=== PATIENT | male | born 1985 | race Two or more races ===

== ENCOUNTER 2018-10-13 19:48 | Inpatient (IN) | payer OTHER ==
[2018-10-13 22:44] VITALS: BMI 26.6
--- NOTE | 2018-10-14 01:10 | HP ---
CIWA Score Nausea/Vomitin-Mild Nausea/No Vomiting Muscle Tremors: 4-Moderate,w/Arms Extend Anxiety: 3 Agitation: 4-Moderately Restless Paroxysmal Sweats: 1-Minimal Palms Moist Orientation: 2-Disoriented Date<2 days Tacttile Disturbances: 0-None Auditory Disturbances: 0-None Visual Disturbances: 0-None Headache: 0-None Present CIWA-Ar Total Score: 15 - Admission Criteria OASAS Guidelines: Admission for Medically Managed Detox: Requires at least one of the followin. CIWA greater than 12 2. Seizures within the past 24 hours 3. Delirium tremens within the past 24 hours 4. Hallucinations within the past 24 hours 5. Acute intervention needed for co occurring medical disorder 6. Acute intervention needed for co occurring psychiatric disorder 7. Severe withdrawal that cannot be handled at a lower level of care (continued vomiting, continued diarrhea, abnormal vital signs) requiring intravenous medication and/or fluids 8. Admission ROS S - HPI Chief Complaint: Alcohol withdrawal symptoms Allergies/Adverse Reactions: Allergies Allergy/AdvReac Type Severity Reaction Status Date / Time No Known Allergies Allergy Verified 10/13/18 23:46 History of Present Illness: 33 years old male with a long history of alcohol dependence is seeking admission to detox. Patient has been in previous detox and reports insignificant period of sobriety. He has medical history of depression and denies suicidal ideation at this time Exam Limitations: No Limitations - Ebola screening Have you traveled outside of the country in the last 21 days: No (N) Have you had contact with anyone from an Ebola affected area: No Have you been sick,other than usual withdrawal symptoms: No Do you have a fever: No - Review of Systems Constitutional: Chills, Loss of Appetite, Malaise, Changes in sleep EENT: reports: Sinus Pressure Respiratory: reports: No Symptoms reported Cardiac: reports: No Symptoms Reported GI: reports: Diarrhea, Poor Appetite, Poor Fluid Intake, Vomiting, Abdominal cramping : reports: No Symptoms Reported Musculoskeletal: reports: No Symptoms Reported, Muscle Weakness Integumentary: reports: Flushing Neuro: reports: Tremors Endocrine: reports: No Symptoms Reported Hematology: reports: No Symptoms Reported Psychiatric: reports: Mood/Affect Appropiate, Orientated x3, Depressed Other Systems: Reviewed and Negative Patient History - Patient Medical History Hx Anemia: No Hx Asthma: No Hx Chronic Obstructive Pulmonary Disease (COPD): No Hx Cardiac Disorders: No Hx Hypertension: No Hx Hypercholesterolemia: No HX Cerebrovascular Accident: No Hx Seizures: No Hx Dementia: No Hx Diabetes: No Hx Gastrointestinal Disorders: No Hx Genitourinary Disorders: No Hx Sexually Transmitted Disorders: No Hx Renal Disease (ESRD): No Hx Thyroid Disease: No Hx Human Immunodeficiency Virus (HIV): No Hx Hepatitis C: No Hx Depression: Yes (Not on medication) Hx Suicide Attempt: No (Denies suicidal ideation at this time) Hx Bipolar Disorder: No Hx Schizophrenia: No - Patient Surgical History Past Surgical History: No Hx Neurologic Surgery: No Hx Cataract Extraction: No Hx Cardiac Surgery: No Hx Lung Surgery: No Hx Breast Surgery: No Hx Breast Biopsy: No Hx Abdominal Surgery: No Hx Appendectomy: No Hx Cholecystectomy: No Hx Genitourinary Surgery: No Hx Section: No Hx Orthopedic Surgery: No Anesthesia Reaction: No - PPD History Previous Implant?: Yes Documented Results: Negative w/o proof - Smoking Cessation Smoking history: Current every day smoker Have you smoked in the past 12 months: Yes Aproximately how many cigarettes per day: 10 Hx Chewing Tobacco Use: No Initiated information on smoking cessation: Yes 'Breaking Loose' booklet given: 10/14/18 - Substances Abused Alcohol Route: Oral Frequency: Daily Amount used: LIQUOR- 3 PINTS, BEER- 3 SIX PACK Age of first use: 14 Date of Last Use: 10/13/18 Cocaine Route: Inhalation Frequency: Daily Amount used: 15 BAGS Age of first use: 15 Date of Last Use: 10/13/18 Family Disease History - Family Disease History Family History: Denies Admission Physical Exam [facility] - Vital Signs Vital Signs: Vital Signs - 24 hr 10/13/18 22:37 Temperature 98 F Pulse Rate 120 H Respiratory 18 Rate Blood Pressure 143/100 - Physical General Appearance: Yes: Moderate Distress, Tremorous, Sweating, Anxious HEENTM: Yes: Normal ENT Inspection, Normocephalic, Normal Voice, [place] Respiratory: Yes: Lungs Clear, Normal Breath Sounds, No Respiratory Distress Neck: Yes: Supple Breast: Yes: Breast Exam Deferred Cardiology: Yes: Regular Rhythm, Regular Rate Abdominal: Yes: Normal Bowel Sounds, Soft Genitourinary: Yes: Within Normal Limits Back: Yes: Normal Inspection Musculoskeletal: Yes: Back pain Extremities: Yes: Tremors Neurological: Yes: Alert, Normal Mood/Affect Integumentary: Yes: Warm Lymphatic: Yes: Within Normal Limits - Diagnostic (1) Alcohol dependence with uncomplicated withdrawal Current Visit: Yes Status: Chronic (2) Depression Current Visit: Yes Status: Chronic Qualifiers: Depression Type: unspecified Qualified Code(s): F32.9 - Major depressive disorder, single episode, unspecified Cleared for Admission [facility] - Detox or Rehab [facility] Level of Care: Medically Managed Detox Regimen/Protocol: Librium S Breath Alcohol Content Breath Alcohol Content: 0.078 Urine Drug Screen - Results Drug Screen Negative: No Urine Drug Screen Results: LOU-Cocaine Inpatient Rehab Admission - Rehab Decision to Admit Inpatient rehab admission?: No
[2018-10-14] MEDS ORDERED: MAGNESIUM CITRATE 300 ML BOTTLE PO PRN (01:21)
[2018-10-14] MEDS ORDERED: MELATONIN 5 MG TABLETS PO PRN (01:21)
[2018-10-14] MEDS ORDERED: ACETAMINOPHEN 325 MG TABLET (FP) PO PRN ×2 (01:21)
[2018-10-14] MEDS ORDERED: chlordiazePOXIDE HCL 25 MG CAPSULE PO PRN ×2 (01:21→06:57)
[2018-10-14] MEDS ORDERED: MAG HYDROX/AL HYDROX/SIMETH 30 ML UNIT-DOSE CUP PO PRN (01:21)
[2018-10-14] MEDS ORDERED: BISMUTH SUBSALICYLATE 524 MG/30 ML UD PO PRN (01:21)
[2018-10-14] MEDS ORDERED: MENTHOL/PHENOL 1 EACH UD MM PRN (01:21)
[2018-10-14] MEDS ORDERED: IBUPROFEN 400 MG TABLET (FP) PO PRN (01:21)
[2018-10-14] MEDS ORDERED: hydrOXYzine PAMOATE 25 MG CAPSULE (FP) PO PRN (01:21)
[2018-10-14] MEDS ORDERED: METHOCARBAMOL 500 MG TABLET PO PRN (01:21)
[2018-10-14] MEDS ORDERED: MAGNESIUM HYDROX 2400MG/30ML ORAL SUSPENSION 30 ML CUP PO PRN (01:21)
[2018-10-14] MEDS: chlordiazePOXIDE HCL 25 MG CAPSULE PO SCH ×4 (06:00→22:23)
[2018-10-14] MEDS: PRENATAL VITAMINS W/ FOLIC ACID TABLET (FP) PO SCH (10:18)
--- NOTE | 2018-10-14 15:40 | PN ---
[facility] CIWA - CIWA Score Nausea/Vomitin-No Nausea/No Vomiting Muscle Tremors: 4-Moderate,w/Arms Extend Anxiety: 3 Agitation: 2 Paroxysmal Sweats: 1-Minimal Palms Moist Orientation: 1-Uncertain about Date Tacttile Disturbances: 0-None Auditory Disturbances: 0-None Visual Disturbances: 0-None Headache: 1-Very Mild CIWA-Ar Total Score: 12 [facility] Progress Note (SOAP) Subjective: tremor sweating restlessness Objective: 10/14/18 15:39 Vital Signs Temperature 97.5 F L 10/14/18 13:40 Pulse Rate 114 H 10/14/18 13:40 Respiratory Rate 18 10/14/18 13:40 Blood Pressure 136/84 10/14/18 13:40 O2 Sat by Pulse Oximetry (%) lab pending Assessment: 10/14/18 15:39 withdrawal sx Plan: continue detox
[2018-10-14] MEDS: THIAMINE HCL 100 MG TABLET (FP) PO SCH (22:23)
[2018-10-14] MEDS ORDERED: chlordiazePOXIDE HCL 25 MG CAPSULE PO SCH (23:00)
[2018-10-15] MEDS: chlordiazePOXIDE HCL 25 MG CAPSULE PO SCH ×4 (05:56→22:12)
[2018-10-15] MEDS: PRENATAL VITAMINS W/ FOLIC ACID TABLET (FP) PO SCH (11:01)
[2018-10-15 11:13] LABS: HEMATOCRIT 40.4 % (35.4-49); HEMOGLOBIN 13.9 GM/dL (11.7-16.9); MCH 32.1 pg (25.7-33.7); MCHC 34.4 g/dl (32.0-35.9); MEAN CELL VOLUME 93.3 fl (80-96); MEAN PLT VOLUME 8.3 fl (7.5-11.1); PLATELET COUNT 288 K/MM3 (134-434); RBC 4.33 M/mm3 (4.00-5.60); RDW 13.1 % (11.9-15.9); WHITE BLOOD COUNT 10.7 K/mm3 (4.0-10.0)
[2018-10-15 11:14] LABS: ALBUMIN 3.5 g/dl (3.4-5.0); ALK PHOS 107 U/L (45-117); ANION GAP 8 MMOL/L (8-16); BILIRUBIN,TOTAL 0.3 mg/dL (0.2-1); BLOOD UREA NITROGEN 16 mg/dL (7-18); CALCIUM 8.7 mg/dL (8.5-10.1); CHLORIDE 101 mmol/L (98-107); CO2 28 mmol/L (21-32); CREATININE 1.4 mg/dL (0.55-1.3); GLUCOSE,RANDOM 120 mg/dL (74-106); POTASSIUM 4.1 mmol/L (3.5-5.1); SGOT/AST 11 U/L (15-37); SGPT/ALT 28 U/L (13-61); SODIUM 137 mmol/L (136-145); TOT PROT 7.4 g/dl (6.4-8.2)
--- NOTE | 2018-10-15 15:11 | PN ---
[facility] CIWA - CIWA Score Nausea/Vomitin-No Nausea/No Vomiting Muscle Tremors: 1-None Visible, but [place] Anxiety: 1-Mildly Anxious Agitation: 2 Paroxysmal Sweats: 1-Minimal Palms Moist Orientation: 1-Uncertain about Date Tacttile Disturbances: 0-None Auditory Disturbances: 0-None Visual Disturbances: 0-None Headache: 1-Very Mild CIWA-Ar Total Score: 7 S Progress Note (SOAP) Subjective: tremor sweating trouble sleep at night low energy Objective: 10/15/18 15:10 Vital Signs Temperature 96.8 F L 10/15/18 13:42 Pulse Rate 120 H 10/15/18 13:42 Respiratory Rate 18 10/15/18 13:42 Blood Pressure 124/80 10/15/18 13:42 O2 Sat by Pulse Oximetry (%) Laboratory Last Values WBC 10.7 K/mm3 (4.0-10.0) H 10/15/18 07:00 RBC 4.33 M/mm3 (4.00-5.60) 10/15/18 07:00 Hgb 13.9 GM/dL (11.7-16.9) 10/15/18 07:00 Hct 40.4 % (35.4-49) 10/15/18 07:00 MCV 93.3 fl (80-96) 10/15/18 07:00 MCH 32.1 pg (25.7-33.7) 10/15/18 07:00 MCHC 34.4 g/dl (32.0-35.9) 10/15/18 07:00 RDW 13.1 % (11.9-15.9) 10/15/18 07:00 Plt Count 288 K/MM3 (134-434) 10/15/18 07:00 MPV 8.3 fl (7.5-11.1) 10/15/18 07:00 Sodium 137 mmol/L (136-145) 10/15/18 07:00 Potassium 4.1 mmol/L (3.5-5.1) 10/15/18 07:00 Chloride 101 mmol/L (98-107) 10/15/18 07:00 Carbon Dioxide 28 mmol/L (21-32) 10/15/18 07:00 Anion Gap 8 MMOL/L (8-16) 10/15/18 07:00 BUN 16 mg/dL (7-18) 10/15/18 07:00 Creatinine 1.4 mg/dL (0.55-1.3) H 10/15/18 07:00 Creat Clearance w eGFR 57.67 (>60) 10/15/18 07:00 Random Glucose 120 mg/dL (74-106) H 10/15/18 07:00 Calcium 8.7 mg/dL (8.5-10.1) 10/15/18 07:00 Total Bilirubin 0.3 mg/dL (0.2-1) 10/15/18 07:00 AST 11 U/L (15-37) L 10/15/18 07:00 ALT 28 U/L (13-61) 10/15/18 07:00 Alkaline Phosphatase 107 U/L (45-117) 10/15/18 07:00 Total Protein 7.4 g/dl (6.4-8.2) 10/15/18 07:00 Albumin 3.5 g/dl (3.4-5.0) 10/15/18 07:00 RPR Titer Nonreactive (NONREACTIVE) 10/15/18 07:00 lab noted Assessment: 10/15/18 15:11 withdrawal sx Plan: continue detox
[2018-10-15] MEDS: THIAMINE HCL 100 MG TABLET (FP) PO SCH (22:12)
[2018-10-15] MEDS ORDERED: chlordiazePOXIDE HCL 25 MG CAPSULE PO SCH (23:00)
[2018-10-16] MEDS ORDERED: chlordiazePOXIDE HCL 10 MG CAPSULE PO PRN ×2 (05:00→23:00)
[2018-10-16] MEDS: chlordiazePOXIDE HCL 10 MG CAPSULE PO SCH ×4 (05:32→22:21)
[2018-10-16] MEDS: PRENATAL VITAMINS W/ FOLIC ACID TABLET (FP) PO SCH (10:54)
--- NOTE | 2018-10-16 18:05 | PN ---
BHS Progress Note (SOAP) Subjective: Sweating (Mild). Objective: PATIENT A & O X 3, OBSERVED AMBULATING ON UNIT. IN NO ACUTE DISTRESS. 10/16/18 18:02 Vital Signs Temperature 97.6 F 10/16/18 14:06 Pulse Rate 105 H 10/16/18 14:06 Respiratory Rate 20 10/16/18 14:06 Blood Pressure 134/89 10/16/18 14:06 O2 Sat by Pulse Oximetry (%) Laboratory Tests 10/15/18 10/15/18 10/15/18 07:00 07:00 07:00 WBC 10.7 H RBC 4.33 Hgb 13.9 Hct 40.4 MCV 93.3 MCH 32.1 MCHC 34.4 RDW 13.1 Plt Count 288 MPV 8.3 Sodium 137 Potassium 4.1 Chloride 101 Carbon Dioxide 28 Anion Gap 8 BUN 16 Creatinine 1.4 H Creat Clearance w eGFR 57.67 Random Glucose 120 H Calcium 8.7 Total Bilirubin 0.3 AST 11 L ALT 28 Alkaline Phosphatase 107 Total Protein 7.4 Albumin 3.5 RPR Titer Nonreactive LABS NOTED. Assessment: 10/16/18 18:03 WITHDRAWAL SYMPTOMS. Plan: CONTINUE DETOX. INCREASE DAILY PO FLUID INTAKE. PATIENT REPORTS THAT HE IS TOLERATING CURRENT WITHDRAWAL / DETOX SYMPTOMS WELL. AT PATIENT'S REQUEST, CURRENT DETOX MEDICATION REGIMEN (LIBRIUM) MODIFIED SO THAT PATIENT MAY BE DISCHARGED TOMORROW, 10/17/2018 ADMISSION BED IS CURRENTLY AVAILABLE AT [facility] ([place], [place]).
[2018-10-16] MEDS: THIAMINE HCL 100 MG TABLET (FP) PO SCH (22:21)
[2018-10-16] MEDS ORDERED: chlordiazePOXIDE HCL 10 MG CAPSULE PO SCH (23:00)
[2018-10-17] MEDS ORDERED: chlordiazePOXIDE HCL 10 MG CAPSULE PO SCH ×2 (05:00→23:00)
[2018-10-17 06:36] VITALS: TEMP 97.1
[2018-10-17 09:17] VITALS: BP 135/96; PULSE 120
[2018-10-17] MEDS: PRENATAL VITAMINS W/ FOLIC ACID TABLET (FP) PO SCH (10:39)
--- NOTE | 2018-10-17 20:50 | DS ---
[facility] Detox Discharge Summary Admission Date: 10/14/18 Discharge Date: 10/17/18 - History Present History: Alcohol Dependence Additional Comments: PATIENT GOING TO [facility] ([place], [place]) FOR AFTERCARE. PATIENT WAS DISCHARGED FROM DETOX UNIT IN STABLE MEDICAL CONDITION. Pertinent Past History: History of Depression. - Physical Exam Results Vital Signs: Vital Signs Temperature 97.1 F L 10/17/18 09:16 Pulse Rate 120 H 10/17/18 09:16 Respiratory Rate 16 10/17/18 09:16 Blood Pressure 135/96 10/17/18 09:16 O2 Sat by Pulse Oximetry (%) Pertinent Admission Physical Exam Findings: WITHDRAWAL SYMPTOMS. Laboratory Tests 10/15/18 10/15/18 10/15/18 07:00 07:00 07:00 WBC 10.7 H RBC 4.33 Hgb 13.9 Hct 40.4 MCV 93.3 MCH 32.1 MCHC 34.4 RDW 13.1 Plt Count 288 MPV 8.3 Sodium 137 Potassium 4.1 Chloride 101 Carbon Dioxide 28 Anion Gap 8 BUN 16 Creatinine 1.4 H Creat Clearance w eGFR 57.67 Random Glucose 120 H Calcium 8.7 Total Bilirubin 0.3 AST 11 L ALT 28 Alkaline Phosphatase 107 Total Protein 7.4 Albumin 3.5 RPR Titer Nonreactive LABS NOTED. - Treatment Hospital Course: Detox Protocol Followed, Detoxed Safely, Responded well, Discharged Condition Good, Rehab Referral Accepted Patient has Accepted a Rehab Referral to: [facility] ([place], [place]). - Medication Discharge Medications: Ambulatory Orders NK [No Known Home Medication] 10/13/18 - Diagnosis (1) Alcohol dependence with uncomplicated withdrawal Status: Acute (2) Depression Status: Chronic Qualifiers: Depression Type: unspecified Qualified Code(s): F32.9 - Major depressive disorder, single episode, unspecified - AMA Did Patient Leave Against Medical Advice: No
== END 2018-10-17 12:35 | disposition home or self-care (01) | DRG 774 ==
LOC: YASAS 19:48 → Y3N 10-14 01:31
PROVIDERS: ADMIT Surgery; ATTEND Surgery
PROC: HZ2ZZZZ Detoxification Services for Substance Abuse Treatment (ICD-10-PCS; principal; 2018-10-14)
DX: F10.230 Alcohol dependence with withdrawal, uncomplicated (principal); F14.20 Cocaine dependence, uncomplicated; F17.210 Nicotine dependence, cigarettes, uncomplicated; F32.9 Major depressive disorder, single episode, unspecified; Z59.0 Homelessness
CPT/HCPCS: 36415; 80053; 85027; 86593